=== PATIENT | female | born 1955 | race Asian ===

== ENCOUNTER 2023-03-03 23:16 | Outpatient (CLI) | payer MEDICARE, OTHER | END 2023-03-03 23:17 | disposition critical access hospital (66) | LOC: EMS 23:16 | DX: R10.12 Left upper quadrant pain (principal); M54.9 Dorsalgia, unspecified | CPT/HCPCS: A0425; A0429 ==

== ENCOUNTER 2023-03-03 23:41 | Inpatient (IN) | payer MEDICARE, OTHER ==
[2023-03-03 23:54] LABS: BASOPHILS % (AUTO) 0.3 %; EOSINOPHILS % (AUTO) 0.3 %; HCT - HEMATOCRIT 36.6 % (37.0-47.0); HGB - HEMOGLOBIN 12.4 g/dL (12.0-16.0); LYMPHOCYTES # (AUTO) 0.7 10^3/uL (1.5-3.5); LYMPHOCYTES % (AUTO) 8.2 %; MEAN CORPUSCULAR HEMOGLOBIN 32.4 pg (27.0-31.0); MEAN CORPUSCULAR HGB CONC 33.9 g/dL (32.0-36.0); MEAN CORPUSCULAR VOLUME 95.6 fL (81.0-99.0); MEAN PLATELET VOLUME 9.3 fL (7.9-10.8); MONOCYTES # (AUTO) 0.3 10^3/uL (0.0-1.0); MONOCYTES % (AUTO) 3.9 %; NEUTROPHILS # (AUTO) 7.5 10^3/uL (1.5-6.6); PLT - PLATELET COUNT 196 10^3/uL (130-450); RED BLOOD COUNT 3.83 10^6/uL (4.20-5.40); RED CELL DISTRIBUTION WIDTH 11.9 % (12.0-15.0); WHITE BLOOD COUNT 8.6 x10^3/uL (4.8-10.8)
[2023-03-04 00:07] LABS: BILIRUBIN,URINE NEGATIVE (NEGATIVE); GLUCOSE, URINE (UA) NEGATIVE (NEGATIVE); KETONES,URINE (UA) >=80 mg/dL (NEGATIVE); LEUKOCYTE ESTERASE, URINE NEGATIVE (NEGATIVE); NITRITE,URINE NEGATIVE (NEGATIVE); OCCULT BLOOD,URINE SMALL (NEGATIVE); PROTEIN,URINE NEGATIVE (NEGATIVE); UROBILINOGEN,URINE 0.2 (NORMAL) E.U./dL (NORMAL)
[2023-03-04 00:12] LABS: CLARITY,URINE CLEAR (CLEAR)
[2023-03-04 00:14] LABS: BACTERIA,URINE Rare /HPF (None Seen); SQUAMOUS EPITHELIAL CELL,UR RARE Squamous (<= Few); WBC,URINE 0-3 /HPF (0-5)
[2023-03-04 00:32] LABS: ALBUMIN 4.4 g/dL (3.2-5.5); ALBUMIN/GLOBULIN RATIO 1.6 (1.0-2.2); BILIRUBIN,TOTAL 1.7 mg/dL (0.2-1.0); CALCIUM 9.5 mg/dL (8.5-10.3); CREATININE 0.5 mg/dL (0.6-1.3); POTASSIUM 3.3 mmol/L (3.5-4.5); TOTAL PROTEIN 7.1 g/dL (6.4-8.9)
--- NOTE | 2023-03-04 00:50 | ED Physician Documentation ---
PD HPI ABD PAIN - Stated complaint Stated Complaint: ABD PX - Chief complaint Chief Complaint: Abd Pain - History obtained from History obtained from: Patient - Additional information Additional information: BIBA. HPI from patient. Patient c/o abdominal pain. This began at approximately 3 PM while she was at home preparing dinner and initially was in the upper abdomen, most notably in the left upper quadrant. The pain was gradual in onset and mild at onset, but it has been constant and has steadily progressed in severity and is also spread to the rest of the abdomen. She says she has had similar pains before but never this severe nor persistent, and previous episodes were limited to the LUQ. She has not sought medical attention for previous episodes. The pain is worse with palpation and movement. She denies fevers. Denies nausea, vomiting. No abdominal/pelvic surgical history. The patient took 800 mg ibuprofen shortly after the onset of the pain without relief, and then took another 800 mg of ibuprofen shortly before calling 911 tonight (again without any relief of symptoms). Review of Systems Constitutional: reports: Reviewed and negative Cardiac: reports: Reviewed and negative Respiratory: reports: Reviewed and negative GI: reports: Abdominal Pain. denies: Nausea, Vomiting, Diarrhea : denies: Dysuria, Frequency PD PAST MEDICAL HISTORY - Past Medical History Past Medical History: No - Past Surgical History Past Surgical History: No - Present Medications Home Medications: Ambulatory Orders Medication Instructions Recorded Confirmed No Known Home Medications 03/03/23 03/03/23 - Allergies Allergies/Adverse Reactions: Allergies Allergy/AdvReac Type Severity Reaction Status Date / Time No Known Drug Allergies Allergy Verified 03/03/23 23:48 - Social History Does the pt smoke?: No Smoking Status: Former smoker Does the pt drink ETOH?: Yes ETOH Use: Beer Does the pt have substance abuse?: No PD ED PE NORMAL - Vitals Vital signs reviewed: Yes - General General: Alert and oriented X 3, Well developed/nourished, Other (appears to be in mild-moderate painful discomfort ) - Cardiac Cardiac: RRR, No murmur - Respiratory Respiratory: No respiratory distress, Clear bilaterally - Abdomen Abdomen: Soft, Non distended - Derm Derm: Normal color, Warm and dry - Extremities Extremities: No edema PD ED PE EXPANDED - Abdomen Abdomen: Decreased BS, Tender to palpation (diffusely but predominantly left- sided (LUQ=LLQ)). No: Rebound, Guarding Results - Vitals Vitals: Vital Signs - 24 hr 03/04/23 03/04/23 03/04/23 00:30 01:00 02:00 Heart Rate 68 69 74 Respiratory 15 18 15 Rate Blood Pressure 136/78 H 133/82 H O2 Saturation 98 96 95 03/04/23 03/04/23 02:30 03:00 Heart Rate 77 75 Respiratory 16 19 Rate Blood Pressure 128/76 134/84 H O2 Saturation 97 95 Oxygen O2 Source Room air - Labs Labs: Laboratory Tests 03/03/23 03/03/23 03/03/23 23:45 23:45 23:50 WBC 8.6 RBC 3.83 L Hgb 12.4 Hct 36.6 L MCV 95.6 MCH 32.4 H MCHC 33.9 RDW 11.9 L Plt Count 196 MPV 9.3 Neut # (Auto) 7.5 H Lymph # (Auto) 0.7 L Troup # (Auto) 0.3 Eos # (Auto) 0.0 Baso # (Auto) 0.0 Absolute Nucleated RBC 0.00 Nucleated RBC % 0.0 Sodium 129 L Potassium 3.3 L Chloride 97 L Carbon Dioxide 25 Anion Gap 7.0 BUN 8 Creatinine 0.5 L Estimated GFR (MDRD) 124 Glucose 112 H Calcium 9.5 Total Bilirubin 1.7 H AST 17 ALT 13 Alkaline Phosphatase 41 L Total Protein 7.1 Albumin 4.4 Globulin 2.7 Albumin/Globulin Ratio 1.6 Lipase 10 L Urine Color YELLOW Urine Clarity CLEAR Urine pH 6.0 Ur Specific Lynn 1.020 Urine Protein NEGATIVE Urine Glucose (UA) NEGATIVE Urine Ketones >=80 H Urine Occult Blood SMALL H Urine Nitrite NEGATIVE Urine Bilirubin NEGATIVE Urine Urobilinogen 0.2 (NORMAL) Ur Leukocyte Esterase NEGATIVE Urine RBC 6-10 H Urine WBC 0-3 Ur Squamous Epith Cells RARE Squamous Urine Bacteria Rare Ur Microscopic Review INDICATED Urine Culture Comments NOT INDICATED - Rads (name of study) CT A/P with IV contrast Relevant Findings:: Prelim report reviewed, See rad report PD Medical Decision Making - ED course Complexity details: reviewed results, re-evaluated patient, considered different ial, d/w patient ED course: No concerning findings on CBC, ER abdominal panel (mild hyponatremia, hypokalemia, and mildly elevated bilirubin (1.7) with normal AST,ALT). UA with 6-10 RBC/hpf without other abnormalities on microscopy. Though not in extremis, she is in varying degrees (waxing and waning) of obvious painful discomfort during H+P; despite this, she is reluctant to have opiate/narcotic pain medication. In discussing options with her, she expresses concern regarding potential for nausea/vomiting side effects. Thus, she is given low-dose (2mg) morphine sulfate IV. She subsequently appears more comfortable and reports significant improvement. She is given 4mg IV zofran more for prophylaxis against potential n/v. It is not clear if she has been having nausea [employer]; she denies nausea but says she felt "sick" (per patient) in proportion to severity of the abdominal pain. Findings on CT A/P are c/w SBO without apparent transition point. Patient says she has not had this diagnosis before. As we discussed these results, she is c/o recurrence of the abdominal pain and again appears to be in painful discomfort. I discussed this case with Dr. Phillips who says patient would be appropriate admission to [facility] under hospitalist service with surgical consult. I then d/w [facility] (Dr. Villaseñor) who agrees with admission to [facility] under hospitalist's service. Departure - Departure Disposition: ED Place in Observation Clinical Impression: Small bowel obstruction Condition: Good Discharge Date/Time: 03/04/23 04:03
[2023-03-04] MEDS ORDERED: ONDANSETRON 4 MG/2 ML VIAL IVP STA (01:02)
[2023-03-04] MEDS ORDERED: MORPHINE 2 MG/ML CARPUJECT IVP STA (01:02)
[2023-03-04] MEDS ORDERED: iohexoL-300 100 ML VIAL ONE (01:12)
[2023-03-04] MEDS ORDERED: iohexoL-300 100 ML VIAL IVP ONE (01:40)
--- NOTE | 2023-03-04 01:57 | CT Report ---
PROCEDURE: Abdomen/Pelvis W INDICATIONS: abdominal pain and tenderness CONTRAST: omni 300, 100mls TECHNIQUE: After the administration of intravenous contrast, a CT scan of the abdomen and pelvis was performed. Images were recorded and evaluated at appropriate window settings. Reformats: coronal and sagittal. F or radiation dose reduction, the following was used: automated exposure control, adjustment of mA and /or kV according to patient size. COMPARISON: None. FINDINGS: Image quality: Excellent. Lung bases and heart: Unremarkable. Liver: No solid mass. Gallbladder and biliary tree: Not distended. Several small gallstones. Spleen: No splenomegaly. Pancreas: No pancreatic ductal dilation. Adrenals: No adrenal nodule. Kidneys and ureters: No hydronephrosis. No renal cystic lesion which requires follow up. No solid mas s. Bowel and peritoneum: Stomach is prominent. Multiple dilated loops of small bowel. Air-fluid levels. No discrete transition point is not identified. There are some decompressed loops of small bowel. The colon is nondistended. The appendix is not distended. No ascites. No pneumoperitoneum. Lymph nodes: No central or retroperitoneal adenopathy. Vessels: No infrarenal aortic aneurysm. PELVIS Reproductive organs: Uterine fibroids. Bladder: No abnormal wall thickening, accounting for underdistention. Pelvic lymph nodes: No pelvic adenopathy by size criteria. Bones: No aggressive osseous abnormality. Other: No significant ventral or inguinal hernia. IMPRESSION: 1. Small bowel obstruction. No pneumoperitoneum. 2. Several gallstones. 3. Uterine fibroids. Results were communicated to Dr. Thapa at 03/04/2023 1:54 AM PST. Reviewed by: Jason Christie MD on 03/04/2023 1:55 AM PST Approved by: Jason Christie MD on 03/04/2023 1:55 AM PST Station ID: [id number]
[2023-03-04] MEDS ORDERED: SODIUM CHLORIDE 0.9% 1,000 ML IV STA (02:32)
[2023-03-04] MEDS ORDERED: SODIUM CHLORIDE FLUSH 0.9% 10 ML SYRINGE IVP PRN (03:07)
[2023-03-04] MEDS ORDERED: ACETAMINOPHEN 325 MG TABLET PO PRN (03:07)
[2023-03-04] MEDS ORDERED: PROMETHAZINE 25 MG/1 ML VIAL IM PRN (03:07)
[2023-03-04] MEDS ORDERED: ONDANSETRON 4 MG/2 ML VIAL IVP PRN (03:07)
[2023-03-04] MEDS ORDERED: HYDROmorphone 0.5 MG/0.5 ML SYRINGE IVP PRN ×2 (03:11)
--- NOTE | 2023-03-04 03:16 | HISTORY & PHYSICAL EXAMINATION ---
Chief Complaint - Chief Complaint Chief Complaint: abdominal pain History of Present Illness - Admitted From Admitted From:: ED - History Obtained From Records Reviewed: EMR History obtained from: ED and Patient Exam Limitations: Telemedicine - History of Present Illness HPI Comment/Other: 67YOM c no prior hx of abdominal or pelvic surgery presents to the ED with abdominal pain since 1500. Patient reports pain to be knot like. No nausea. No vomiting. Last BM was yesterday morning and was normal in color. No blood. Last colonoscopy was >10yrs ago. Patient reports no postprandial sxs. She does have intermittent loose stools alternating with constipation at times. No fever. No URIs sxs. No chest pain. No sob. No palpitation. No rash. No trauma. History - Past Medical History MRSA Hx?: No - POLST POLST Status: Full Code Meds/Allgy - Home Medications Home Medications: Ambulatory Orders Medication Instructions Recorded Confirmed No Known Home Medications 03/03/23 03/03/23 - Allergies Allergies/Adverse Reactions: Allergies Allergy/AdvReac Type Severity Reaction Status Date / Time No Known Drug Allergies Allergy Verified 03/03/23 23:48 Review of Systems - Other Findings Other Findings: Negative unless mentioned differently Exam - Vital Signs Reviewed Vital Signs: Yes Vital Signs: Vital Signs x48h Temp Pulse Resp BP Pulse Ox 03/04/23 02:30 77 16 128/76 97 03/04/23 02:00 74 15 95 03/04/23 01:00 69 18 133/82 H 96 03/04/23 00:30 68 15 136/78 H 98 03/03/23 23:44 36.4 C L 64 14 151/82 H 99 - Physical Exam General Appearance: positive: No acute distress Eyes Bilateral: positive: Normal inspection ENT: positive: ENT inspection nml Neck: positive: Nml inspection Skin: positive: Color nml Neurologic/Psychiatric: positive: Oriented x3, CN's nml (2-12) Conclusion/Plan - Problem List (1) SBO (small bowel obstruction) Conclusion/Plan: hx and imaging supportive of dx SBO. npo. pain control. iv fluid. Gen surg not requesting NGT. patient has no n/v. will monitor and intervene with NGT if n/v. followup with Gen surg in am. recommend colo outpatient after SBO resolves (2) Hyponatremia Conclusion/Plan: likely 2/2 SBO. iv fluid c NS. followup with BMP (3) Hypokalemia Conclusion/Plan: replete K and Mag. recheck in am. (4) Cholelithiasis Conclusion/Plan: noted on CT imaging. no postprandial sxs hence likely incidental. monitor. - Lab Results Lab results reviewed: Yes Fish Bones: 03/03/23 23:45 03/03/23 23:45 Core Measures - Anticipated LOS I expect patient to be DC'd or transferred within 96 hours.: No - Issues Hospital Issues and Management Plan: The patient consented to receive this telemedicine service, which I performed via live two-way audiovisual equipment. The patient is at ([facility]) and I am physically in [facility]. A nurse assisted me in the visit. - DVT/VTE - Prophylaxis VTE/DVT Device ordered at admit?: Yes Telemedicine Consult Details - Provider Location & Consult Time Telemedicine consultation conducted via videoconferencing?: Yes List names and roles of persons who participated in consult:: ED and Patient Telemedicine provider location:: [facility] Time Telemedicine consult began:: 02:56 Time Telemedicine consult completed:: 03:56
[2023-03-04] MEDS ORDERED: MAGNESIUM SULFATE 2 GRAM 2 GM/50 ML BAG IV ONE (03:23)
[2023-03-04] MEDS: POTASSIUM CHLOR 10 MEQ/100 ML 10 MEQ/100 ML BAG IV SCH ×8 (04:45→15:06)
[2023-03-04 06:03] LABS: HCT - HEMATOCRIT 34.7 % (37.0-47.0); HGB - HEMOGLOBIN 11.7 g/dL (12.0-16.0); MEAN CORPUSCULAR HEMOGLOBIN 32.5 pg (27.0-31.0); MEAN CORPUSCULAR HGB CONC 33.7 g/dL (32.0-36.0); MEAN CORPUSCULAR VOLUME 96.4 fL (81.0-99.0); MEAN PLATELET VOLUME 9.9 fL (7.9-10.8); RED BLOOD COUNT 3.6 10^6/uL (4.20-5.40); RED CELL DISTRIBUTION WIDTH 12.1 % (12.0-15.0)
[2023-03-04 06:19] LABS: ALBUMIN/GLOBULIN RATIO 1.6 (1.0-2.2); BILIRUBIN,TOTAL 1.7 mg/dL (0.2-1.0); CALCIUM 8.9 mg/dL (8.5-10.3); CREATININE 0.5 mg/dL (0.6-1.3); MAGNESIUM 2.4 mg/dL (1.7-2.3); PHOSPHORUS 3.5 mg/dL (2.5-5.0); POTASSIUM 3.2 mmol/L (3.5-4.5); TOTAL PROTEIN 6.5 g/dL (6.4-8.9)
[2023-03-04] MEDS: SODIUM CHLORIDE 0.9% 1,000 ML IV SCH ×2 (06:32→20:19)
--- NOTE | 2023-03-04 06:47 | CONSULTATION NOTE ---
Surgery Consult - Admit Date Hospital Admission Date: 03/04/23 - Home Meds/Allergies Home Medications: Patient History Medication Instructions Recorded Confirmed No Known Home Medications 03/03/23 03/03/23 Allergies/Adverse Reactions: Allergies Allergy/AdvReac Type Severity Reaction Status Date / Time No Known Drug Allergies Allergy Verified 03/03/23 23:48 - Vital Signs Vital Signs: Last Vital Signs Temp 99.1 F 03/04/23 04:10 Pulse 72 03/04/23 04:10 Resp 16 03/04/23 04:10 BP 112/67 03/04/23 04:10 Pulse Ox 97 03/04/23 04:10 O2 Flow Rate Intake & Output: Intake & Output 03/01/23 03/02/23 03/03/23 03/04/23 23:59 23:59 23:59 23:59 Intake Total 655 Output Total 250 Balance 405 - Lab Results Result Diagrams: 03/04/23 05:03 03/04/23 05:03 - Consultation Note Consultation Note: General Surgery Consultation Note Assessment: 1) Abdominal pain with distension of stomach and proximal small bowel. There is no transition zone for obstruction on the CT and she has never had abdominal surgery so the risk of a mechanical SBO is low. She has no clinic, lab, or image evidence of bowel ischemia and her symptoms (according to her) are somewhat improved since ED admission. Gastroenteritis is the working diagnosis at this point in time. 2) Hypokalemia 3) Hyponatremia Recommendation: 1) No need for NGT at this time as she is not nauseated nor has she had emesis 2) NPO - may have sips and ice chips 3) IV fluids (maintenance) with replacement of electrolytes 4) Ambulate 5) If no lower bowel activity by 12:00, small bowel challenge study will be performed. 6) Surgery will follow <><><><><><><><><><> Reason for Consultation Abdominal pain Chief Complaint Abdominal pain HPI 67 yof with sudden onset of left upper abdominal pain yesterday after eating a bowel of soup. The discomfort was constant and eventually moved to her mid- abdomen. She had no emesis or nausea with the onset of the pain but did experience nausea later in the evening. She came to the ED last night since the pain was not resolving. She denies prior episodes of similar discomfort. She denies fevers, chills, emesis. She occasionally has diarrhea alternating with hard stools but takes no laxatives. She has not passed stool or flatus since yesterday. At the time of my exam, she was awake and resting comfortably Past Medical History Negative Past Surgical History Negative Current Medications See "Medication" section Allergies See "Allergy" section ROS Pertinent positives Abdominal discomfort, mild nausea All other reviewed systems negative Physical Examination Vital Signs: See "Vital Signs" section BMI: 21 GENERAL APPEARANCE: Normal development, normal body habitus, normal grooming PSYCHIATRIC: AAO; Comfortable, pleasant, cooperative EYES: Pupils equal, round and reactive to light, sclera anicteric EARS, NOSE, MOUTH, THROAT: Hearing normal, Oral mucous membranes moist and without lesions; NECK: No crepitus, lymphadenopathy, or thyromegaly LUNGS: Clear to auscultation without wheezing; No use of accessory muscles to breathe CARDIOVASCULAR: Heart-NSR without murmurs; Palpable carotid arteries - no bruits; Aorta, Femoral, Pedal pulses palpable; Peripheral edema [] ABD: Soft, non-distended, no palpable masses; hyperactive bowel sounds; no tenderness LYMPHATIC: Neck, Axillae, Groin: no palpable adenopathy EXTREMITIES: No clubbing, cyanosis, infections SKIN: Anicteric; No rashes, lesions, Ulcerations Labs See "Labs" section Imaging CT ABD/Pelvis: Dilated stomach and proximal small bowel and duodenum; Decompressed small bowel; Air and stool throughout large bowel; No free fluid All images were personally reviewed by me for this encounter. Demarco Phillips MD, FACS General Surgery Service [phone]
[2023-03-04] MEDS: SODIUM CHLORIDE FLUSH 0.9% 10 ML SYRINGE IVP SCH ×2 (09:44→16:35)
--- NOTE | 2023-03-04 11:39 | PHARMACY PROGRESS NOTE ---
- Best Possible Medication History Admit Date and Time: 03/04/23 0307 Processed by: Nursing Medication History completed: Yes Patient Interview: Completed As the person ultimately responsible for medication therapy, providers are able to order a medication from an existing home medication list in [facility] via the "Reconcile Routine" prior to Confirmation of that medication by lan support specialist. Such practice is discouraged except when the physician, in their clinical judg ment, deems that a medical need exists for a medication without regard to previous use.
[2023-03-05] MEDS: SODIUM CHLORIDE FLUSH 0.9% 10 ML SYRINGE IVP SCH ×3 (00:58→15:38)
[2023-03-05] MEDS: SODIUM CHLORIDE 0.9% 1,000 ML IV SCH ×2 (00:58→15:06)
--- NOTE | 2023-03-05 06:23 | PROVIDER PROGRESS NOTE ---
Subjective - General Admit Date: 03/04/23 - Other Other Information/Narrative: General Surgery AM Progress Note S: Lillie feels about the same. She claims to have passed a slight amount of flatus but no BM yet O: VSS, afeb AAO, resting comfortable. no complaint of abdominal pain, nausea, or vomiting Abd is soft and non distended, non-tender; BS are hypoactive A: Gastroenteritis most likely. Would like to see improve bowel function before discharge P: SBFT challenge. The test should be both diagnostic and therapeutic. Once she demonstrates bowel activity, she can be started on a diet and if tolerated, discharged to home. Demarco Phillips MD, [facility] General Surgery Service Objective - Patient Data Vital Signs: Vital Signs x48h Temp Pulse Resp BP Pulse Ox 03/05/23 00:00 99.0 F 57 L 16 108/63 96 Weight: Weight 03/03/23 03/04/23 03/05/23 23:59 23:59 23:59 Weight (kg) 54.5 kg 52.5 kg 53.5 kg Intake & Output: Intake and Output Totals x24h 03/03/23 03/04/23 03/05/23 23:59 23:59 23:59 Intake Total 2405 Output Total 250 Balance 2155 - Lab Results Lab Results: 03/04/23 05:03 03/04/23 05:03 - Current Medications Current Medications: Current Medications Generic Name Dose Route Start Last Admin Trade Name Freq PRN Reason Stop Dose Admin Acetaminophen 650 mg 03/04/23 03:07 03/04/23 20:16 Acetaminophen 325 Mg Tablet PO 650 mg Q4HR PRN Administration Pain 1 to 4, or Fever Hydromorphone HCl 0.4 mg 03/04/23 03:11 03/04/23 03:45 Hydromorphone 0.5 Mg/0.5 Ml Syringe IVP 0.4 mg Q4HR PRN Administration PAIN >8 Sodium Chloride 1,000 mls @ 75 mls/hr 03/04/23 04:00 03/05/23 00:58 Normal Saline 0.9% IV 75 mls/hr .[id number] KATHYA Administration Sodium Chloride 10 ml 03/04/23 09:00 03/05/23 00:58 Sodium Chloride Flush 0.9% 10 Ml Syringe IVP 10 ml 0100,0900,1700 KATHYA Administration
[2023-03-05] MEDS ORDERED: DIATRIZOATE MEGLU/DIATRIZO SOD 30 ML BOTTLE PO ONE ×2 (07:21→08:34)
--- NOTE | 2023-03-05 10:51 | XRAY Report ---
PROCEDURE: SBFT Challenge Panel INDICATIONS: SBO vs Ileus COMPARISON: CT abdomen pelvis on August 03, 2023 CONTRAST: Oral Gastrografin FINDINGS: KUB: No suspicious abdominal calcifications. Visualized solid organ contours appear normal. No nayeli picious bony abnormalities. Small bowel: There is normal transit time of barium through the small bowel. Small bowel loops are of normal caliber throughout. Mucosal folds are smooth and of normal thickness. No strictures, intr aluminal masses, or extrinsic mass effects are noted. The terminal ileum is identified, and is shawnee l in morphology. Large bowel: There is contrast within the ascending and transverse colon which is normal in caliber. IMPRESSION: Within 2 hours, oral contrast extends into the transverse colon; therefore, there is no small bowel o bstruction. Reviewed by: Xavi Santiago MD on 03/05/2023 10:49 AM PST Approved by: Xavi Santiago MD on 03/05/2023 10:49 AM [facility] Station ID: [id number]
--- NOTE | 2023-03-05 20:22 | PROVIDER PROGRESS NOTE ---
Subjective - Prog Note Date Prog Note Date: 03/05/23 Prog Note Time: 20:22 - Subjective Pt reports feeling: Improved Subjective: Upper GI with small bowel follow-through shows dye all the way into the transverse bowel. Current Medications - Current Medications Current Medications: Active Medications Acetaminophen (Acetaminophen 325 Mg Tablet) 650 mg PO Q4HR PRN PRN Reason: Pain 1 to 4, or Fever Last Admin: 03/04/23 20:16 Dose: 650 mg Hydromorphone HCl (Hydromorphone 0.5 Mg/0.5 Ml Syringe) 0.4 mg IVP Q4HR PRN PRN Reason: PAIN >8 Last Admin: 03/04/23 03:45 Dose: 0.4 mg Hydromorphone HCl (Hydromorphone 0.5 Mg/0.5 Ml Syringe) 0.5 mg IVP Q4H PRN PRN Reason: PAIN 5-7 Sodium Chloride (Normal Saline 0.9%) 1,000 mls @ 75 mls/hr IV .[id number] [facility], [facility] Last Admin: 03/05/23 15:06 Dose: 75 mls/hr Ondansetron HCl (Ondansetron 4 Mg/2 Ml Vial) 4 mg IVP Q6HR PRN PRN Reason: Nausea / Vomiting Last Admin: 03/05/23 08:24 Dose: 4 mg Promethazine HCl (Promethazine 25 Mg/1 Ml Vial) 25 mg IM Q6HR PRN PRN Reason: Nausea / Vomiting Sodium Chloride (Sodium Chloride Flush 0.9% 10 Ml Syringe) 10 ml IVP PRN PRN PRN Reason: NEEDED PER PROVIDER ORDERS Sodium Chloride (Sodium Chloride Flush 0.9% 10 Ml Syringe) 10 ml IVP 010 0,0900,1700 [facility] Last Admin: 03/05/23 15:38 Dose: Not Given No Known Home Medications 03/03/23 Objective - Vital Signs/Intake & Output Reviewed Vital Signs: Yes Vital Signs: Vital Signs x48h Temp Pulse Resp BP Pulse Ox 03/05/23 15:34 36.7 C 73 18 121/70 99 Intake & Output: Intake & Output 03/02/23 03/03/23 03/04/23 03/05/23 23:59 23:59 23:59 23:59 Intake Total 2405 1000 Output Total 250 Balance 2155 1000 - Objective General Appearance: positive: No acute distress, Alert, Other (Pleasant female who looks stated age. Sitting up in bed. All questions asked and answered) Eyes Bilateral: positive: PERRL, EOMI ENT: positive: No signs of dehydration Neck: positive: No JVD. negative: Stiff neck Respiratory: positive: No respiratory distress. negative: Wheezes, Rales, Rhonchi Cardiovascular: positive: Regular rate & rhythm Abdomen: positive: Tenderness (Mild. With bloating. Hypoactive bowel sounds. No flatus) Extremities: positive: Non-tender, Full ROM, No pedal edema Neurologic/Psychiatric: positive: Oriented x3, CN's nml (2-12) - Lab Results Fish Bones: 03/06/23 04:30 03/06/23 04:30 ABX Reporting Has patient been on IV antibiotics over the past 48 hours?: No Assessment/Plan - Problem List (1) SBO (small bowel obstruction) Impression: General surgery is asking us to follow this patient with him. We are the admitting service but they are guiding the treatment plan. Today's plan is a upper GI with small bowel follow-through. If successful, we will advance the patient's diet. (2) Hyponatremia Impression: No labs today. Will order labs for tomorrow. Patient is currently n.p.o. with IV fluids running until a small bowel follow-through (3) Hypokalemia Impression: No labs today. Currently NPO. IV fluids running. Will check labs tomorrow
[2023-03-05] MEDS ORDERED: HYDROcod/ACETAM 5/325 MG TABLET PO PRN (20:30)
[2023-03-05] MEDS ORDERED: HYDROmorphone 0.5 MG/0.5 ML SYRINGE IVP PRN (20:31)
[2023-03-06] MEDS: SODIUM CHLORIDE FLUSH 0.9% 10 ML SYRINGE IVP SCH (00:51)
[2023-03-06] MEDS: SODIUM CHLORIDE 0.9% 1,000 ML IV SCH ×2 (04:15→16:33)
[2023-03-06 04:46] LABS: BASOPHILS % (AUTO) 0.6 %; EOSINOPHILS # (AUTO) 0.1 10^3/uL (0.0-0.7); EOSINOPHILS % (AUTO) 2.9 %; HCT - HEMATOCRIT 34.5 % (37.0-47.0); HGB - HEMOGLOBIN 11.1 g/dL (12.0-16.0); LYMPHOCYTES # (AUTO) 1.4 10^3/uL (1.5-3.5); LYMPHOCYTES % (AUTO) 28.9 %; MEAN CORPUSCULAR HEMOGLOBIN 32.6 pg (27.0-31.0); MEAN CORPUSCULAR HGB CONC 32.2 g/dL (32.0-36.0); MEAN CORPUSCULAR VOLUME 101.2 fL (81.0-99.0); MEAN PLATELET VOLUME 9.3 fL (7.9-10.8); MONOCYTES # (AUTO) 0.4 10^3/uL (0.0-1.0); MONOCYTES % (AUTO) 8.5 %; NEUTROPHILS # (AUTO) 2.9 10^3/uL (1.5-6.6); NEUTROPHILS % (AUTO) 58.9 %; PLT - PLATELET COUNT 184 10^3/uL (130-450); RED BLOOD COUNT 3.41 10^6/uL (4.20-5.40); RED CELL DISTRIBUTION WIDTH 12.5 % (12.0-15.0); WHITE BLOOD COUNT 4.9 x10^3/uL (4.8-10.8)
[2023-03-06 05:20] LABS: CALCIUM 8.7 mg/dL (8.5-10.3); CREATININE 0.5 mg/dL (0.6-1.3); POTASSIUM 3.5 mmol/L (3.5-4.5)
[2023-03-06] MEDS ORDERED: DEXTROSE 50% ABBOJECT 25 GM/50 ML SYRINGE IVP PRN (06:03)
--- NOTE | 2023-03-06 18:43 | Discharge Plan ---
Discharge Plan Problem Reviewed?: Yes Disposition: Home, Self Care Condition: Good Diet: Regular (low fiber diet, drink 1500 ml of water/day) Activity Restrictions: Activity as Tolerated Shower Restrictions: No Driving Restrictions: No Instruction Topics: Diet Low Residue Health Concerns: You have no history of abdominal or pelvic surgery and presented to the emergency room with abdominal pain that started around 3:00 in the afternoon on 04 March. You did not have nausea or vomiting. Your last colonoscopy was over 10 years ago. In the emergency room he had normal vital signs, but the CAT scan showed you to have a partial small bowel obstruction. Your anatomy consisted of stomach that goes into the small bowel, small bowel and goes into the large bowel, and large bowel empties in the rectum in the form of stool. You had a blockage in that middle part called the small bowel. This is very unusual because most people have small bowel obstruction due to previous scar tissue causing adhesions and scarring that press down on the small bowel. You do not have this. You did well with just waiting. We did not feed you and we gave you IV fluids for hydration, IV pain medicines, and nausea medicines. We then did an upper GI small bowel follow-through with Gastrografin. That caused her to have bowel movements and to open up. Your partial obstruction went away. Was on clear liquids and then advance her diet and you were able to keep 2 meals down. You do have some gassiness and bloating but you are having bowel movements and farting. Plan of Treatment: 1. Please see your primary care provider in follow-up. You tell me that you are in the process of getting an appointment with a new doctor now that you are a Medicare patient. Make sure you do that as soon as possible. 2. When you get into see your primary care provider make sure you get a colonoscopy. 3. For the next couple of weeks please eat a low residue/low fiber diet. This will help reduce the risk that you have recurrence of your bowel obstruction 4. Do not take a fiber supplement and drink at least a liter and a half of water a day Care Goals: Did not have recurrence of the small bowel obstruction Assessment: Patient is alert, oriented to person, place, time, and situation and understands the need for follow-up No Smoking: If you smoke, Please STOP! Call for help.
--- NOTE | 2023-03-06 18:47 | DISCHARGE SUMMARY ---
"Discharge Summary Admit Date: 03/04/23 Discharge Date: 03/06/23 Discharging Provider: Rissa Collins MD Primary Care Provider: no PCP Code Status: Attempt Resuscitation Condition at Discharge: Good Discharge Disposition: 01 Home, Self Care - DIAGNOSES Discharge Diagnoses with Status of Each Condition: 1. Partial small bowel obstruction 2. Hypokalemia 3. Hyponatremia - HPI History of Present Illness: 67YOM c no prior hx of abdominal or pelvic surgery presents to the ED with abdominal pain since 1500. Patient reports pain to be knot like. No nausea. No vomiting. Last BM was yesterday morning and was normal in color. No blood. Last colonoscopy was >10yrs ago. Patient reports no postprandial sxs. She does have intermittent loose stools alternating with constipation at times. No fever. No URIs sxs. No chest pain. No sob. No palpitation. No rash. No trauma. History - Past Medical History MRSA Hx?: No - CONSULTS | PROCEDURES Consultations: General surgery Procedures: Abdomen pelvis CT with a prominent stomach, multiple dilated loops of small bowel, air-fluid levels without a discrete transition point. There is some decompressed loops of small bowel. Colon is not distended. Appendix is not distended. No pneumoperitoneum. Uterine fibroids. Under distention of the bladder. Small bowel follow-through there is normal transit time of the barium to the small bowel. Small bowel loops are normal caliber throughout. Mucosal folds are smooth and normal thickness. No strictures, masses or extrinsic mass effect. Terminal ileum identified and normal. Large bowel had contrast with in the ascending and transverse colon within 2 hours. No small bowel obstruction identified. - HOSPITAL COURSE Hospital Course: The patient underwent a Gastrografin upper GI with small bowel follow-through and had excellent results. Contrast was seen in the colon, no obstruction. The patient had bowel movements. Diet was advanced. And she was discharged in stable condition. During her stay hyponatremia and hypokalemia were addressed. We have asked her to follow-up with her primary care provider. She has not had previous abdominal surgery so this presentation was odd. She may be a candidate for enteroclysis. She also may be candidate for colonoscopy. I have asked her to please do a low residue diet for the next few weeks.Her diet was advanced once we realized there is no obstruction. She progressed well and was able to be discharged. At discharge temperature was 36.8, heart rate 70, blood pressure 138/82. Resp irations 16. 98% on room air. Short statured female at 54 kg. Regular rate and rhythm. And abdomen soft, mildly tender, but normal bowel sounds and had a bowel movement. She was alert oriented to person place and time and situation. Extremities are without edema. - ALLERGIES Allergies/Adverse Reactions: Allergies Allergy/AdvReac Type Severity Reaction Status Date / Time No Known Drug Allergies Allergy Verified 03/03/23 23:48 - MEDICATIONS Home Medications: Ambulatory Orders Medication Instructions Recorded Confirmed No Known Home Medications 03/03/23 03/03/23 - LABS Result Diagrams: 03/06/23 04:30 03/06/23 04:30"
[2023-03-06 19:40] VITALS: BP 138/82; O2SAT 98
== END 2023-03-06 19:45 | disposition home or self-care (01) | DRG 389 ==
LOC: ED 23:41 → MS3 03-04 03:07
PROVIDERS: ADMIT Internal Medicine; ATTEND Specialist
DX: K56.609 Unspecified intestinal obstruction, unspecified as to partial versus complete obstruction (principal); K56.600 Partial intestinal obstruction, unspecified as to cause; E87.1 Hypo-osmolality and hyponatremia; E80.6 Other disorders of bilirubin metabolism; Z87.891 Personal history of nicotine dependence; E87.6 Hypokalemia; K80.20 Calculus of gallbladder without cholecystitis without obstruction
CPT/HCPCS: 36415; 74177; 74250; 80048; 80053; 81001; 83690; 83735; 84100; 85025; 85027; 96374; 96375; 99285; A9270; J1170; Q9963; Q9967; 81003; 87086

== ENCOUNTER 2023-03-18 11:17 | Day surgery (SDC) | payer MEDICARE, OTHER ==
[2023-03-18] MEDS ORDERED: LACTATED RINGERS 1,000 ML IV ONE ×2 (11:44→13:37)
--- NOTE | 2023-03-18 12:32 | ANESTHESIA ---
Pre-Anesthesia VS, & Labs - Diagnosis change in bowel habits - Procedure egd/colonoscopy Vital Signs: Temp Pulse Resp BP Pulse Ox O2 Flow Rate 36.2 C L 56 L 17 133/68 H 100 03/18/23 11:55 03/18/23 11:55 03/18/23 11:55 03/18/23 11:55 03/18/23 11:55 Height: 5 ft 2 in Weight (kg): 48.7 kg Body Mass Index: 19.6 BMI Classification: Normal - NPO Last Fluid Intake: 929 - Is Patient ?: No Home Medications and Allergies Home Medications: Ambulatory Orders Docusate Sodium [Dok] 1 tab PO BID 03/17/23 polyethylene glycoL 3350 [Miralax] 17 gm PO DAILY 03/17/23 Docusate Sodium [Dok] 1 tab PO BID 03/17/23 polyethylene glycoL 3350 [Miralax] 17 gm PO DAILY 03/17/23 Allergies/Adverse Reactions: Allergies Allergy/AdvReac Type Severity Reaction Status Date / Time No Known Drug Allergies Allergy Verified 03/17/23 13:18 Anes History & Medical History - Anesthetic History Anesthesia Complications: reports: No previous complications Family history of Anesthesia Complications: Denies Family history of Malignant Hyperthermia: Denies - Medical History Cardiovascular: reports: None Pulmonary: reports: None Gastrointestinal: reports: Other Urinary: reports: None Neuro: reports: None Musculoskeletal: reports: None Endocrine/Autoimmune: reports: None Blood Disorders: reports: None Skin: reports: None Smoking Status: Former smoker - Surgical History General: reports: Colonoscopy Results - EKG Results EKG Comparison: Reviewed EKG Exam General: Alert Dental: Partials Upper (out) Mouth Openin Fingerbreadth Neck Mobility: Reduced Mallampati classification: III Thyromental Distance: less than 4 cm Plan Anesthesia Type: Total IV Consent for Procedure(s) Verified and Reviewed: Yes Code Status: Attempt Resuscitation ASA classification: 2-Mild systemic disease Is this case an emergency?: No
[2023-03-18] MEDS ORDERED: PROPOFOL 200 MG/20 ML VIAL IVP ONE (12:38)
--- NOTE | 2023-03-18 13:43 | ANESTHESIA POST OP EVALUATION ---
Anesthesia Post Eval - Post Anesthesia Eval Vitals: Last Vital Signs Temp 36.0 C L 03/18/23 13:37 Pulse 64 03/18/23 13:37 Resp 16 03/18/23 13:37 BP 106/66 03/18/23 13:37 Pulse Ox 99 03/18/23 13:37 O2 Flow Rate CV Function Including HR & BP: Stable Pain Control: Satisfactory Nausea & Vomiting: Negative Mental Status: Baseline Respiratory Status: Airway Patent Hydration Status: Satisfactory Anesthesia Complications: None
[2023-03-18 13:58] VITALS: BP 100/65; O2SAT 95
== END 2023-03-18 11:18 | disposition home or self-care (01) ==
LOC: SDS 11:17
PROVIDERS: ATTEND Surgery
DX: R19.4 Change in bowel habit (principal); R10.12 Left upper quadrant pain; R10.13 Epigastric pain; K64.9 Unspecified hemorrhoids
CPT/HCPCS: 43235; 45378; J7120

== ENCOUNTER 2023-03-26 09:36 | Outpatient (CLI) | payer MEDICARE, OTHER ==
[2023-03-26 12:34] LABS: BASOPHILS % (AUTO) 1.3 %; EOSINOPHILS # (AUTO) 0.1 10^3/uL (0.0-0.7); EOSINOPHILS % (AUTO) 3.2 %; HCT - HEMATOCRIT 38.7 % (37.0-47.0); HGB - HEMOGLOBIN 12.7 g/dL (12.0-16.0); LYMPHOCYTES # (AUTO) 1.2 10^3/uL (1.5-3.5); LYMPHOCYTES % (AUTO) 37.5 %; MEAN CORPUSCULAR HGB CONC 32.8 g/dL (32.0-36.0); MEAN CORPUSCULAR VOLUME 97.5 fL (81.0-99.0); MEAN PLATELET VOLUME 10.4 fL (7.9-10.8); MONOCYTES # (AUTO) 0.2 10^3/uL (0.0-1.0); MONOCYTES % (AUTO) 7.1 %; NEUTROPHILS # (AUTO) 1.6 10^3/uL (1.5-6.6); NEUTROPHILS % (AUTO) 50.3 %; PLT - PLATELET COUNT 218 10^3/uL (130-450); RED BLOOD COUNT 3.97 10^6/uL (4.20-5.40); RED CELL DISTRIBUTION WIDTH 11.9 % (12.0-15.0); WHITE BLOOD COUNT 3.1 x10^3/uL (4.8-10.8)
[2023-03-26 13:00] LABS: CHOL/HDL RATIO 2.4 (<4.4); CHOLESTEROL 230 mg/dL; HDL CHOLESTEROL 96 mg/dL; LDL CHOLESTEROL,CALCULATED 115 mg/dL; LDL/HDL RATIO 1.2 (<4.4); TRIGLYCERIDES 93 mg/dL (48-352); VLDL CHOLESTEROL 19 mg/dL
[2023-03-26 13:08] LABS: FERRITIN 116.6 ng/mL (11.0-306.8)
== END 2023-03-26 09:37 | disposition home or self-care (01) ==
LOC: LAB.N 09:36
PROVIDERS: ATTEND Physician Assistant
DX: D64.9 Anemia, unspecified (principal); Z13.9 Encounter for screening, unspecified
CPT/HCPCS: 36415; 80061; 82607; 82728; 82746; 83721; 85025

== ENCOUNTER 2023-04-04 11:35 | Outpatient (CLI) | payer MEDICARE, OTHER ==
--- NOTE | 2023-04-04 13:39 | Ultrasound Report ---
PROCEDURE: Ankle Brachial Index INDICATIONS: COLD FEET, COLD HANDS TECHNIQUE: Ankle-brachial indices were obtained bilaterally and recorded. COMPARISONS: None. FINDINGS: Right ankle brachial index (JANETT): 1.1 Left ankle brachial index (JANETT): 1.0 Healing potential: Ankle pressures >55 mm Hg in non-diabetics and >80 mm Hg in diabetics are likely to achieve primary h ealing of ischemic foot ulcers. Toe pressures >30 mm Hg are likely to achieve primary healing of ischemic foot ulcers, toe or transme tatarsal amputations. IMPRESSION: Normal bilateral ABIs. Reviewed by: Zeina Walsh MD on 04/04/2023 1:38 PM PST Approved by: Zeina Walsh MD on 04/04/2023 1:38 PM PST Station ID: [id number]
== END 2023-04-04 11:36 | disposition home or self-care (01) ==
LOC: DI 11:35
PROVIDERS: ATTEND Physician Assistant
DX: R29.898 Other symptoms and signs involving the musculoskeletal system (principal)
CPT/HCPCS: 93922